=== PATIENT | male | born 1990 | race Caucasian/White ===

== ENCOUNTER → 2019-08-11 18:02 | Outpatient (CLI) | payer OTHER, SELFPAY ==
--- NOTE | 2019-08-11 18:05 | DI.RAD.S_ITS ---
PROCEDURE: XR TIBIA FIBULA RT 2V INDICATIONS: left carmona pain TECHNIQUE: 2 views of the tibia and fibula were acquired. COMPARISON: None. FINDINGS: Bones: No fractures or dislocations. No suspicious bony lesions. Soft tissues: No suspicious soft tissue calcifications or masses. IMPRESSION: No acute fracture. No osseous lesion. If clinical suspicion and/or symptoms persist, further assessment with repeat plainfilms, or advanced imaging (e.g., CT, MRI, or bone scan) may be helpful for further assessment. Dictated by: Agapito Mccartney M.D. on 08/11/2019 at 18:21 Approved by: Agapito Mccartney M.D. on 08/11/2019 at 18:22
== END ==
PROVIDERS: Visit Provider Physician Assistant
DX: M79.662 Pain in left lower leg (principal)
CPT/HCPCS: 73590